=== PATIENT | female | born 1985 | race Caucasian/White ===

== ENCOUNTER → 2018-06-25 08:03 | Outpatient (CLI) | payer OTHER, SELFPAY ==
--- NOTE | 2018-06-25 08:07 | DI.US.S_ITS ---
ULTRASOUND OF RIGHT BREAST: 06/25/2018 CLINICAL: Palpable right breast lump. Comparison is made to exam dated: 06/25/2018 [facility]. Ultrasound of the right breast was performed on the area of interest. [place] scale images of the real-time examination were reviewed. IMPRESSION: NEGATIVE There is no sonographic evidence of malignancy. There is no mammographic or sonographic abnormality seen in the right breast to correspond with the palpable abnormality in the lower inner quadrant, however, clinical followup is recommended. Return to annual mammogram screening schedule is recommended. This exam was interpreted at Station ID: [id number]. Electronically Signed By: Danna peoples/iker:06/25/2018 11:17:45 letter sent: Clinical Evaluation Ultrasound BI-RADS: 1 Negative
--- NOTE | 2018-06-25 08:07 | DI.MG.S_ITS ---
UNILATERAL RIGHT DIGITAL DIAGNOSTIC MAMMOGRAM 3D/2D: 06/25/2018 CLINICAL: Right breast lump. Family history of breast cancer. Baseline exam. No prior exams were available for comparison. There are scattered fibroglandular elements in the right breast. No significant masses, calcifications, or other findings are seen in the breast. IMPRESSION: INCOMPLETE: NEEDS ADDITIONAL IMAGING EVALUATION There is no mammographic abnormality seen in the right breast to correspond with the palpable abnormality, however, ultrasound is recommended. This exam was interpreted at Station ID: [id number]. NOTE: For mammograms, a report in lay terms will be sent to the patient. Approximately 15% of breast malignancies will not be visualized mammographically. In the management of a palpable breast mass, a negative mammogram must not discourage biopsy of a clinically suspicious lesion. Electronically Signed By: Danna peoples/iker:06/25/2018 09:12:37 letter sent: Additional Imaging Needed ACR BI-RADS Category 0: Incomplete 3340F
== END ==
PROVIDERS: PCP Family Medicine; Visit Provider Nurse Practitioner Family
DX: R92.8 Other abnormal and inconclusive findings on diagnostic imaging of breast (principal); Z80.3 Family history of malignant neoplasm of breast; N63.24 Unspecified lump in the left breast, lower inner quadrant
CPT/HCPCS: 76642; 77065; G0279

== ENCOUNTER → 2018-08-16 12:06 | Outpatient (CLI) | payer OTHER, SELFPAY | PROVIDERS: PCP Family Medicine | DX: Z23 Encounter for immunization (principal) | CPT/HCPCS: 90471; 90686 ==

== ENCOUNTER → 2019-09-03 11:39 | Outpatient (CLI) | payer OTHER, SELFPAY | PROVIDERS: PCP Family Medicine | DX: Z23 Encounter for immunization (principal) | CPT/HCPCS: 90471; 90686 ==

== ENCOUNTER → 2019-12-09 09:33 | Outpatient (CLI) | payer OTHER, SELFPAY ==
[2019-12-09 11:27] LABS: TSH w/ Reflex to FT4 3.64 uIU/mL (0.47-4.68)
== END ==
PROVIDERS: PCP Family Medicine; Visit Provider Family Medicine
DX: R63.5 Abnormal weight gain (principal)
CPT/HCPCS: 36415; 84443

== ENCOUNTER 2019-12-17 15:52 | Emergency (ER) | payer OTHER, SELFPAY ==
[2019-12-17 16:07] VITALS: BP 133/79; PULSE 66; RESP 18; TEMP 36.9; O2SAT 99
[2019-12-17 16:53] LABS: Alanine Aminotransferase 15 IU/L (<35)
--- NOTE | 2019-12-17 16:54 | ED_ITS ---
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 Was taking out a IV from a patient when she was splattered in the right eye and also in her mouth. She did extensively wash out her eye prior to coming to the ER. She also washed out her mouth then brushed her teeth. She states she is up-to-date on all of her immunizations to include tetanus. She has had the hepatitis B immunization. Related Data Home Medications Medication Instructions Recorded Confirmed levonorgestrel 20 mcg/24 hours (5 1 device INTRAUTERINE .ONCE 12/09/19 12/17/19 yrs) 52 mg intrauterine device citalopram [Celexa] 30 mg PO DAILY 12/17/19 12/17/19 clotrimazole-betamethasone 1 manuel TOPICAL BIDP PRN 12/17/19 [Lotrisone] valacyclovir 500 mg PO DAILY 12/17/19 12/17/19 Previous Rx's Medication Instructions Recorded rizatriptan [Maxalt] 5 mg PO PRN PRN #15 tab 07/03/17 emtricitabine 200 mg PO DAILY 30 Days #30 cap 12/17/19 raltegravir 400 mg PO BID 30 Days #60 tab 12/17/19 tenofovir disoproxil fumarate 300 mg PO DAILY 30 Days #30 tab 12/17/19 Allergies Allergy/AdvReac Type Severity Reaction Status Date / Time Penicillins [PENICILLINS] Allergy Mild rash Unverified 08/28/18 13:24 Review of Systems Constitutional Constitutional: Denies fever(s) Eyes Eyes: Denies change in vision and Denies diplopia ENT Ears, Nose, Mouth, and Throat: Denies sore throat Integumentary/Breasts Skin/Breast: Denies lesions and Denies rash Hematologic/Lymphatic Hematologic/Lymphatic: Denies easy bleeding and Denies easy bruising Patient History Medical History Anxiety (Chronic) Chicken pox (Chronic) Migraines (Chronic) Shingles (Acute) Surgical History No history of previous surgery (Resolved 01/2015) [place] teeth extracted (Resolved) Social History marital status: unmarried,single Smoking Status: Never smoker alcohol intake: current substance use type: does not use Smoking Status: Never smoker Exam Initial Vital Signs Initial Vital Signs: Vital Signs Temperature 98.4 F 12/17/19 16:07 Pulse Rate 66 12/17/19 16:07 Respiratory Rate 18 12/17/19 16:07 Blood Pressure 133/79 12/17/19 16:07 Pulse Oximetry 99 12/17/19 16:07 Const General: cooperative, healthy appearing and comfortable Limitations: mental status not altered Resp Effort & Inspection: normal respiratory effort Cardio Rate: regular rate Skin Lesions: no lesions Rashes: no rashes Neuro General: alert, awake and oriented x3 Course Vital Signs Vital signs: Vital Signs - 8 hr 12/17/19 16:07 Temperature 98.4 F Pulse Rate 66 Respiratory Rate 18 Blood Pressure 133/79 Pulse Oximetry 99 Medical Decision Making Lab Data Lab results reviewed: Yes I reviewed the patient's lab results. Labs: Lab Results 12/17/19 12/17/19 Range/Units 16:32 16:32 ALT 15 (<35) IU/L Hep Bs Antigen Negative (NEGATIVE) s/c Hepatitis C Antibody Negative (NEGATIVE) s/c HIV 1&2 Ab/P24 Ag 4thGn Negative (NEGATIVE) MDM Narrative Medical decision making narrative: The source patient labs were drawn. Patient is up-to-date on tetanus another hepatitis-B immunizations due to her working here at the facility. She was given information from the exposure packet. She signed consent with regard to testing for HIV. She also signed consent with regard to treating for HIV. L and I paperwork completed. I do feel that this is somewhat of a concerning exposure given the fact that it was in her mouth and also her right eye. I discussed with her the concerns. We will start her on HIV prophylaxis given the situation. Paperwork was sent to employee health. Patient will follow-up with employee health. Discharge Plan Departure Patient Disposition: Home Clinical Impression: Employee exposure to blood Discharge Date/Time: 12/17/19 18:38 Instructions: DI for Accidental Exposure to Body Fluids Activity Restrictions/Additional Instructions: Your prescriptions were transmitted to [facility]. Follow-up with employee health here at [facility]. You can call them tomorrow morning to schedule follow- up. Return to the emergency department for any new or worsening symptoms Prescriptions: New raltegravir 400 mg tablet 400 mg PO BID 30 Days Qty: 60 RF: 0 tenofovir disoproxil fumarate 300 mg tablet 300 mg PO DAILY 30 Days Qty: 30 RF: 0 emtricitabine 200 mg capsule 200 mg PO DAILY 30 Days Qty: 30 RF: 0 No Action Mirena 20 mcg/24 hours (5 yrs) 52 mg intrauterine device 1 device intrauterine .ONCE RF: 0 rizatriptan [Maxalt] 5 MG tablet 5 mg PO PRN PRNQty: 15 RF: 3 valacyclovir 500 mg tablet 500 mg PO DAILY RF: 0 citalopram [Celexa] 20 mg tablet 30 mg PO DAILY RF: 0 clotrimazole-betamethasone [Lotrisone] 15 GM cream 1 manuel Topical BIDP PRN (Reason: as directed) RF: 0 Referrals: Vera Cerna DO [Primary Care Provider] -
[2019-12-17 17:26] LABS: Hepatitis B Surface Antigen NEGATIVE s/c (NEGATIVE)
[2019-12-17 17:35] LABS: HIV 1 & 2 Ab/Ag 4th Gen Combo NEGATIVE (NEGATIVE)
[2019-12-17 18:21] LABS: Hep C Virus Ab w/Reflex Quant NEGATIVE s/c (NEGATIVE)
[2019-12-19 14:20] LABS: Hepatitis B Surf Ab Qualitativ Reactive (Nonreactive)
== END 2019-12-17 18:38 | disposition home or self-care (01) ==
PROVIDERS: Emergency Provider Emergency Medicine; PCP Family Medicine
DX: Z77.21 Contact with and (suspected) exposure to potentially hazardous body fluids (principal); Y99.0 Civilian activity done for income or pay
CPT/HCPCS: 99281; 99282

== ENCOUNTER → 2020-04-04 09:38 | Outpatient (CLI) | payer OTHER, SELFPAY ==
--- NOTE | 2020-04-04 09:41 | DI.RAD.S_ITS ---
PROCEDURE: XR ANKLE RT MIN 3V INDICATIONS: Ankle injury TECHNIQUE: 3 views of the ankle were acquired. COMPARISON: None. FINDINGS: Bones: There is a tiny avulsion fracture seen on the distal aspect of the lateral malleolus. No additional fractures are detected. Incidental note is made of an accessory ossicle, an os trigonum. The talar dome demonstrates no enoch abnormality. No suspicious lytic or blastic lesions are seen. Soft tissues: Soft tissue swelling is seen, particularly laterally. IMPRESSION: Tiny avulsion fracture seen along the distal aspect of the lateral malleolus, with associated soft tissue swelling. Dictated by: Kraig Yusuf M.D. on 04/04/2020 at 8:56 Approved by: Kraig Yusuf M.D. on 04/04/2020 at 8:57
== END ==
PROVIDERS: PCP Family Medicine; Referring Provider Student in an Organized Health Care Education/Training Program; Visit Provider Student in an Organized Health Care Education/Training Program
DX: S82.61XA Displaced fracture of lateral malleolus of right fibula, initial encounter for closed fracture (principal); M79.89 Other specified soft tissue disorders; X58.XXXA Exposure to other specified factors, initial encounter
CPT/HCPCS: 73610

== ENCOUNTER → 2020-10-06 15:03 | Outpatient (CLI) | payer OTHER, SELFPAY | PROVIDERS: PCP Family Medicine; Referring Provider Internal Medicine; Visit Provider Internal Medicine | DX: Z23 Encounter for immunization (principal) | CPT/HCPCS: 90471; 90686 ==

== ENCOUNTER → 2020-10-21 13:14 | Outpatient (CLI) | payer OTHER, SELFPAY ==
[2020-10-21 15:30] LABS: COVID19 -Nasal RAPID Negative (Negative)
== END ==
PROVIDERS: PCP Family Medicine; Visit Provider Physician Assistant
DX: Z11.59 Encounter for screening for other viral diseases (principal)
CPT/HCPCS: 87635

== ENCOUNTER → 2020-11-12 09:01 | Outpatient (CLI) | payer OTHER, SELFPAY ==
[2020-11-12] MEDS: COVID-19 VACC(MODERNA-1)/PF 100 MCG/0.5 ML VIAL IM (09:07)
== END ==
PROVIDERS: PCP Family Medicine; Visit Provider Internal Medicine
DX: Z23 Encounter for immunization (principal)
CPT/HCPCS: 0011A; 91301

== ENCOUNTER → 2020-12-10 10:13 | Outpatient (CLI) | payer OTHER, SELFPAY ==
[2020-12-10] MEDS: COVID-19 VACC #2, MRNA(MOD) 100 MCG/0.5 ML VIAL IM (10:19)
== END ==
PROVIDERS: PCP Family Medicine; Visit Provider Internal Medicine
DX: Z23 Encounter for immunization (principal)
CPT/HCPCS: 0012A; 91301

== ENCOUNTER → 2021-09-30 13:49 | Outpatient (CLI) | payer OTHER, SELFPAY | PROVIDERS: PCP Family Medicine; Referring Provider Internal Medicine; Visit Provider Internal Medicine | DX: Z23 Encounter for immunization (principal) | CPT/HCPCS: 90471; 90686 ==

== ENCOUNTER → 2021-10-09 10:13 | Outpatient (CLI) | payer OTHER, SELFPAY ==
[2021-10-09 12:31] LABS: COVID19 - ADMIT (NP swab/PCR) Negative (Negative)
== END ==
PROVIDERS: PCP Family Medicine; Referring Provider Internal Medicine; Visit Provider Internal Medicine
DX: Z20.822 Contact with and (suspected) exposure to COVID-19 (principal)
CPT/HCPCS: C9803; U0003

== ENCOUNTER → 2022-10-14 08:26 | Outpatient (CLI) | payer OTHER, SELFPAY ==
[2022-10-14 11:02] LABS: Alanine Aminotransferase 18 IU/L (<35); Albumin 4.4 g/dL (3.5-5.0); Albumin Globulin Ratio 1.4 (1.0-2.8); Alkaline Phosphatase 49 U/L (38-126); Aspartate Aminotransferase 24 IU/L (14-36); BUN Creatinine Ratio 20.9 (6-22); Bilirubin Total 0.4 mg/dL (0.2-1.3); Blood Urea Nitrogen 14 mg/dL (7-17); Carbon Dioxide 29 mmol/L (22-32); Chloride 100 mmol/L (98-107); Estimated Glomerular Filt Rate > 60 mL/min (>60); Globulin 3.1 g/dL (1.7-4.1); Glucose 77 mg/dL (70-100); HEMOLYSIS < 15 (0-50); Potassium 4.2 mmol/L (3.4-5.1); Sodium 136 mmol/L (137-145); Total Protein 7.5 g/dL (6.3-8.2)
== END ==
PROVIDERS: PCP Family Medicine; Referring Provider Family Medicine; Visit Provider Family Medicine
DX: E66.9 Obesity, unspecified (principal)
CPT/HCPCS: 36415; 80053; 84443

== ENCOUNTER → 2025-10-13 10:10 | Outpatient (CLI) | payer OTHER, SELFPAY ==
--- NOTE | 2025-10-13 10:23 | DI.US.S_ITS ---
MM Bilateral Diagnostic mammogram, US breast BI limited: 10/13/2025 BI-RADS: 1 CLINICAL: 40-year old female for bilateral diagnostic mammogram and bilateral diagnostic breast ultrasound. Tyrer-Cuzick lifetime risk of 23.0%. No personal or first- degree family history of breast cancer. Current reported family history of breast cancer: maternal grandmother. The patient reports an enlarged lymph node (less than 1 month) in the left axilla and a palpable abnormality (1 year) in both breasts. PRIOR EXAMS 06/25/2018. MAMMOGRAPHY TECHNIQUE: 2D and 3D (tomosynthesis) digital mammographic views obtained, with additional images as needed for full coverage. Current study was also evaluated with a Computer Aided Detection (CAD) system. ULTRASOUND TECHNIQUE: TARGETED Bilateral Breast Ultrasound: Real-time ultrasound exam was performed focused to area of clinical and/or imaging concern. Real-time mccarty scale and color doppler imaging of the area of clinical interest was performed with image documentation. DENSITY B. There are scattered areas of fibroglandular density. MAMMOGRAPHY FINDINGS Right (finding-1): Central, Retroareolar, Far Anterior depth: There is no suspicious mammographic finding to account for concern by the patient of a palpable lump. No suspicious mass, asymmetry, microcalcification, or other abnormality seen. Left (finding-2): Central, Retroareolar, Far Anterior depth: There is no suspicious mammographic finding to account for concern by the patient of a palpable lump. No suspicious mass, asymmetry, microcalcification, or other abnormality seen. Left (finding-3): MLO only, Axilla: There is no suspicious mammographic finding to account for concern by the patient. No suspicious mass, asymmetry, microcalcification, or other abnormality seen. ULTRASOUND FINDINGS Right (finding-1): Central, Retroareolar: There is no sonographic abnormality to account for concern by the patient of a palpable lump. Left (finding-2): Central, Retroareolar: There is no sonographic abnormality to account for concern by the patient of a palpable lump. Left (finding-3): Axilla: There is no sonographic abnormality to account for concern by the patient. No abnormal lymph nodes are seen in the axilla. IMPRESSION: * No evidence of malignancy. RECOMMENDATIONS Bilateral * Clinical follow-up is recommended, and further management of palpable abnormalities or other focal signs or symptoms should be based on the results of clinical evaluation. If palpable abnormality or other concerning symptom persists or progresses, further clinical evaluation should be considered. * Annual screening mammography. COMMENTS: Findings and recommendations were conveyed to the patient during today's evaluation. According to the Tyrer-Cuzick Risk Assessment Model, based on the information provided your patient has a greater than 20% lifetime risk for developing breast cancer. Consider supplemental screening with breast MRI and participation in a high-risk screening program. OVERALL ASSESSMENT CATEGORY BI-RADS-1: Negative. The [employer] recommends annual screening mammography beginning at age 40 for women with average risk of breast cancer. ELECTRONICALLY SIGNED: Simran Arreola M.D. on 10/13/2025 at 11:49:50 AM PT Interpreting Station ID: [id number]
== END ==
PROVIDERS: PCP Family Medicine; Referring Provider Family Medicine; Visit Provider Family Medicine
DX: N64.4 Mastodynia (principal); Z80.3 Family history of malignant neoplasm of breast
CPT/HCPCS: 76642; 77066; G0279